=== PATIENT | female | born 1940 | race Caucasian/White ===

== ENCOUNTER 2019-01-28 14:45 | Observation (INO) ==
[2019-01-28 15:51] LABS: Basophils % 0.1 %; Hematocrit 39.6 % (35.3-44.9); Hemoglobin 12.7 g/dL (11.5-15.4); Immature Granulocytes % 0.5 % (0-4); Lymphocytes # 2.8 K/mcL (0.6-4.6); Lymphocytes % 13.8 %; Mean Corpuscular HGB Conc 32.1 g/dL (31.6-35.5); Mean Corpuscular Hemoglobin 28.8 pg (28.0-33.3); Mean Corpuscular Volume 89.8 fL (83.0-100.0); Mean Platelet Volume 9.4 fL (9.4-12.4); Monocytes # 1.6 K/mcL (0.0-1.3); Monocytes % 7.7 %; Platelet Count 223 K/mcL (140-400); Red Blood Count 4.41 M/mcL (3.82-4.97); Red Cell Distribution Width 13.8 % (11.5-14.5); Segmented Neutrophils % 77.9 %; White Blood Count 20.2 K/mcL (4.3-11.1)
--- NOTE | 2019-01-28 15:59 | Emergency Department Note ---
Disposition Clinical Impression: Colitis, UTI (urinary tract infection), Renal insufficiency, Leukocytosis Disposition: Admitted As Inpatient Condition: Fair Referrals: NONE,PCP [Non-Partnered Physician] - Time of Disposition: 16:46 Dizziness HPI - General Chief Complaint: ED Dizziness Stated Complaint: dizziness fall 2 days ago Time Seen by Provider: 01/28/19 14:50 Source: patient, family Mode of arrival: ambulatory Limitations: no limitations Nursing Notes Reviewed: Yes Vital Signs Reviewed: Yes - History of Present Illness HPI Narrative: 78-year-old female who presents to the emergency having one episodes of dizziness that started about 45 days ago she fell back and struck the back of her head patient states though that is seemed to improve but then in addition been developing abdominal pain passing blood in her stool and also having what she thinks is possibly blood in her urine. Shows fever chills lightheadedness dizziness regularly she has had some intermittent episodes of dizzy spells chills cough cold of flulike symptoms. States that she is passing blood in her stool denies any diarrhea melena hematochezia hematemesis patient has a numbness tingling weakness. Denies any calf pain swelling edema noted denies any rash or lesions. Patient has any straining she denies prior history of diverticular disease. 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 Denies: ataxia, chest pain, confusion, diaphoresis, fever, chills, malaise, rash, shortness of breath, vision changes, nausea, vomiting, palpitations - Related Data Home Medications Medication Instructions Recorded Confirmed Aspirin 81 mg PO DAILY 05/04/15 01/28/19 Atorvastatin [Lipitor] 20 mg PO HS 05/04/15 01/28/19 Folic Acid/Multivit-Min/Lutein 1 mg PO DAILY 05/04/15 01/28/19 [Centrum Silver Chewable Tablet] LORazepam [Ativan] 1 mg PO HS 05/04/15 01/28/19 Lisinopril [Zestril] 2.5 mg PO DAILY 05/04/15 01/28/19 Sertraline [Zoloft] 100 mg PO DAILY 05/04/15 01/28/19 SitaGLIPtin [Januvia] 100 mg PO DAILY 05/04/15 01/28/19 TraMADol [Ultram] 50 mg PO Q6H PRN 05/04/15 01/28/19 Denosumab [Prolia (For Outpatient 60 mg SQ [id number] 01/01/16 01/28/19 Infusion)] Vitamin E (Dl,Tocopheryl Acet) 400 unit PO DAILY 05/09/16 01/28/19 [Vitamin E] Dexlansoprazole [Dexilant] 60 mg PO DAILY 05/09/17 01/28/19 Glimepiride [Amaryl] 1 mg PO DAILY 05/09/17 01/28/19 Ergocalciferol (VITAMIN D2) 400 unit PO DAILY 08/28/17 01/28/19 [Vitamin D] Gabapentin [Neurontin] 300 mg PO TID 08/28/17 01/28/19 Levothyroxine [Synthroid] 50 mcg PO 30 08/28/17 01/28/19 Loratadine [Claritin] 10 mg PO DAILY 08/28/17 01/28/19 Triamterene/HCTZ 37.5/25mg 1 each PO DAILY 08/28/17 01/28/19 [Dyazide] Isosorbide MONOnitrate (24 HR) 30 mg PO DAILY 04/12/18 01/28/19 [Imdur] Previous Rx's Medication Instructions Recorded Metoprolol [Lopressor] 12.5 mg PO BID #60 tablet 08/30/17 Allergies Allergy/AdvReac Type Severity Reaction Status Date / Time No Known Allergies Allergy Verified 09/18/18 12:04 All systems ED: reviewed and negative except as stated. Review of Systems: As Per HPI Constitutional: Denies: fever, chills, weakness Eyes: Denies: eye pain, eye discharge ENT ED: Denies: ear pain, throat pain Cardiovascular: Denies: chest pain, palpitations, dyspnea on exertion Respiratory: Denies: cough, dyspnea, wheezes Gastrointestinal: Reports: abdominal pain, nausea, vomiting, diarrhea, hematochezia Genitourinary: Reports: frequency. Denies: urgency, dysuria Musculoskeletal: Denies: back pain, neck pain Integumentary: Denies: rash, abrasion Neurological: Denies: headache Psychiatric: Denies: anxiety, depression Endocrine: Reports: fatigue. Denies: heat or cold intolerance Hematological/Lymphatic: Denies: easy bleeding, easy bruising Allergic/Immunologic: Denies: facial swelling Past Medical History - Past Medical History Attestation: Yes The following information was validated with the patient. 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 - Social History Smoking Status: Never smoker Smokeless Tobacco Status: No Alcohol use: Reports: none Drug use: Reports: none Physical Exam - General Limitations: no limitations General appearance: alert, in no apparent distress - Head Head exam: atraumatic, normocephalic, normal inspection - Eye Eye exam: Present: normal appearance, PERRL, EOMI - ENT ENT exam: normal exam, normal oropharynx, mucous membranes moist - Neck Neck exam: Present: normal inspection, full ROM, trachea midline - Chest Chest inspection: Present: normal inspection, symmetric chest wall rise - Respiratory Respiratory exam: Present: normal lung sounds bilaterally - Cardiovascular Cardiovascular exam: Present: regular rate, normal rhythm, normal heart sounds - Abdominal Exam Abdominal exam: Present: soft, tenderness, diminished bowel sounds. Absent: mass, pulsatile mass Abdominal tenderness: Present: RLQ, LLQ, moderate - Expanded Upper Extremity Exam Shoulder exam: Present: normal inspection, full ROM Arm exam: Present: normal inspection, full ROM Elbow exam: Present: normal inspection, full ROM Forearm/Wrist exam: Present: normal inspection, full ROM Hand exam: Present: normal inspection, full ROM Vascular exam: Normal: capillary refill, radial pulse - Expanded Lower Extremity Exam Hip/Pelvis exam: Present: normal inspection, full ROM Upper leg exam: Present: normal inspection, full ROM Knee exam: Present: normal inspection, full ROM Lower leg exam: Present: normal inspection, full ROM Ankle exam: Present: normal inspection, full ROM Foot/toe exam: Present: normal inspection, full ROM Neurovascular/Tendon exam: Present: normal capillary refill, normal fine/light touch. Absent: motor deficit, sensory deficit, tendon deficit Gait: observed and normal - Back Exam Back exam: Present: normal inspection, full ROM. Absent: muscle spasm - Neurological Exam Neurological exam: Present: alert, oriented X3, CN II-XII intact, normal gait - Psychiatric Psychiatric exam: Present: normal affect, normal mood - Skin Skin exam: Present: warm, dry, intact Course Course Narrative: Patient was seen and examined and the patient's taken radiology and laboratory data is obtained upon return patient had blood cultures added after she had an elevated white count and noted to have a UTI and underlying colitis concerns are is making sure that she did not develop any type of C. difficile she did not been on any antibiotics recently as result patient was admitted transfer to [facility] stable Vital Signs Temperature 97.2 F L 01/28/19 14:46 Pulse Rate 90 01/28/19 14:46 Respiratory Rate 17 01/28/19 14:46 Blood Pressure 143/78 01/28/19 14:46 O2 Sat by Pulse Oximetry 93 01/28/19 14:46 Temperature 97.2 F L 01/28/19 14:46 Pulse Rate 90 01/28/19 14:46 Respiratory Rate 17 01/28/19 14:46 Blood Pressure 143/78 01/28/19 14:46 O2 Sat by Pulse Oximetry 93 01/28/19 14:46 Oxygen Delivery Oxygen Delivery Room Air Dizziness - MDM Narrative Medical decision making narrative: Dizziness secondary to head injury dehydration orthostatic hypotension UTI infection or bacterial abdominal pain colitis diverticulitis infectious diabetes - Medical Records Medical records reviewed: Yes I reviewed the patient's medical records. - Lab Data Lab results reviewed: Yes I reviewed the patient's lab results. - Radiology Data Radiology results reviewed: Yes I reviewed the patient's radiology results. ITS Impressions Abdomen/Pelvis CT 01/28/19 15:13 IMPRESSION: Scattered wall thickening of the distal transverse and descending colon with surrounding injection of the pericolonic fat, suggesting early colitis of indeterminate etiology. Suspected Bartholin's gland cyst previously seen on the left is no longer noted Post treatment changes right kidney. As mentioned previously there is increased soft tissue attenuation internally, new compared to 2012 Trace free fluid is seen in the pelvis, likely reactive D/ / James Jacinto MD / James Jacinto MD Interpreting Provider: James Jacinto MD Head CT 01/28/19 15:13 IMPRESSION: Stable appearance of the brain with no acute intracranial abnormality. D/ / Alvaro Campbell MD / Alvaro Campbell MD Interpreting Provider: Alvaro Campbell MD Critical Care Time Critical Care Time: No Sepsis Event Note - Evaluation Current Stage of Suspected Sepsis: sepsis Possible Source of Sepsis: GI tract/intra-abdominal - Focused Exam Date of Encounter: 01/28/19 Time of Encounter: 16:38 Vital Signs: Vital Signs Temp Pulse Resp BP Pulse Ox 01/28/19 16:31 73 20 104/58 93 01/28/19 15:58 76 17 82/65 94 01/28/19 15:34 81 16 115/74 95 01/28/19 14:46 97.2 F L 90 17 143/78 93 Respiratory Exam: Present: CTA bilaterally Cardiovascular Exam: Present: RRR Capillary Refill: < 2 seconds Peripheral Pulse Strength: 3+ normal Peripheral Pulse Location: Radial Skin Exam: normal turgor - Bedside Monitoring Bedside Ultrasound Performed: No Passive Leg raise/fluid bolus: not performed
[2019-01-28 16:05] LABS: Bilirubin,Urine Small (Negative); Blood,Urine Trace-lysed (Negative); Clarity,Urine Slightly Cloudy (Clear); Color,Urine Yellow (Yellow); Glucose,Urine (UA) Normal (Normal); Ketones,Urine Negative (Negative); Leukocyte Esterase,Urine Trace (Negative); Nitrite,Urine Negative (Negative); PH,Urine 5.5 pH Units (5.0-8.0); Protein,Urine Trace mg/dL (Neg-Trace); Specific Gravity,Urine 1.025 (1.010-1.025); Urobilinogen,Urine Normal (Normal)
[2019-01-28 16:05] LABS: Calcium 9.4 mg/dL (8.6-10.3); Potassium 4.3 mEq/L (3.5-5.1)
[2019-01-28 16:10] LABS: Neutrophils # 15.7 K/mcL (1.6-8.9)
[2019-01-28 16:13] LABS: Bacteria,Urine Many per hpf (None-Few); Hyaline Casts,Urine Few per lpf (None-Few); Mucus,Urine Few (Few); RBC,Urine 0-3 per hpf (0-3); Squamous Epithelial Cell,Urine Moderate per lpf (None-Few)
[2019-01-28 16:14] LABS: Activated Partial Thrombo Time 29.6 Seconds (26.0-36.0); INR 1.2; Prothrombin Time 13.3 Seconds (9.4-12.1)
[2019-01-28] MEDS ORDERED: MetroNIDAZOLE 500 MG/100 ML 500 MG/100 ML BAG IVPB ONE ×2 (16:37→17:45)
[2019-01-28] MEDS: 0.9 % Sodium Chloride 1,000 ML IVC SCH ×7 (17:23→20:21)
[2019-01-28] MEDS ORDERED: D5% in Water 1,000 ML IVC PRN (17:45)
[2019-01-28] MEDS ORDERED: Denosumab 60 MG/ML SYRINGE SQ SCH (17:45)
[2019-01-28] MEDS ORDERED: *HR* Dextrose 50 % in Water (Syg) 50 ML SYRINGE IVP PRN (17:45)
[2019-01-28] MEDS ORDERED: Dextrose Gel 15 GM/37.5 ML TUBE PO PRN ×2 (17:45)
[2019-01-28] MEDS ORDERED: Naloxone 0.4 MG/ML INJ IVP PRN (17:45)
[2019-01-28] MEDS ORDERED: traMADol 50 MG TABLET PO PRN (17:45)
[2019-01-28] MEDS ORDERED: Ondansetron 4 MG/2 ML VIAL IVP PRN (17:45)
[2019-01-28] MEDS: *HR* LORazepam 0.5 MG TABLET PO SCH (20:21)
[2019-01-28] MEDS: Gabapentin 300 MG CAPSULE PO SCH (20:22)
[2019-01-29] MEDS: MetroNIDAZOLE 500 MG/100 ML 500 MG/100 ML BAG IVPB SCH ×4 (02:55→23:33)
[2019-01-29] MEDS: 0.9 % Sodium Chloride 1,000 ML IVC SCH (05:10)
[2019-01-29] MEDS: Levothyroxine 25 MCG TABLET PO SCH (05:35)
[2019-01-29 06:19] LABS: Basophils % 0.1 %; Eosinophils % 0.3 %; Hematocrit 31.2 % (35.3-44.9); Hemoglobin 10.1 g/dL (11.5-15.4); Immature Granulocytes % 0.3 % (0-4); Lymphocytes # 2.8 K/mcL (0.6-4.6); Lymphocytes % 19.2 %; Mean Corpuscular HGB Conc 32.4 g/dL (31.6-35.5); Mean Corpuscular Hemoglobin 29.4 pg (28.0-33.3); Mean Platelet Volume 9.9 fL (9.4-12.4); Monocytes # 1.1 K/mcL (0.0-1.3); Monocytes % 7.1 %; Neutrophils # 10.8 K/mcL (1.6-8.9); Platelet Count 163 K/mcL (140-400); Red Blood Count 3.43 M/mcL (3.82-4.97); White Blood Count 14.8 K/mcL (4.3-11.1)
[2019-01-29 06:38] LABS: Potassium 3.4 mEq/L (3.5-5.1)
[2019-01-29 06:47] LABS: INR 1.2; Prothrombin Time 13.9 Seconds (9.4-12.1)
[2019-01-29] MEDS: Insulin LISPRO 300 UNITS/3 ML VIAL SQ SCH ×3 (07:33→16:49)
[2019-01-29] MEDS: Vitamin E 200 UNIT (90MG) CAPSULE PO SCH (08:05)
[2019-01-29] MEDS: Multivit/Ca/Min/Fe/FA 1 TAB TABLET PO SCH (08:05)
[2019-01-29] MEDS: *HR* SitaGLIPtin 25 MG TABLET PO SCH (08:05)
[2019-01-29] MEDS: Gabapentin 300 MG CAPSULE PO SCH ×3 (08:05→20:28)
[2019-01-29] MEDS: Isosorbide MONOnitrate (24 HR) 30 MG TAB.ER.24H PO SCH (08:05)
[2019-01-29] MEDS: Cholecalciferol (D-3) 1,000 UNIT (25MCG) TABLET PO SCH (08:05)
[2019-01-29] MEDS ORDERED: levoFLOXacin 750 MG/150 ML 750 MG/150 ML BAG IVPB SCH (09:00)
[2019-01-29] MEDS ORDERED: *HR* Glimepiride 2 MG TABLET PO SCH (09:00)
[2019-01-29] MEDS ORDERED: Loratadine 10 MG TABLET PO SCH (09:00)
[2019-01-29] MEDS ORDERED: Aspirin 81 MG TAB.CHEW PO SCH (09:00)
--- NOTE | 2019-01-29 09:27 | Electrocardiograph Report ---
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
[2019-01-29] MEDS ORDERED: *HR* Dextrose 50 % in Water (Vial) 50 ML VIAL IVP PRN (10:30)
--- NOTE | 2019-01-29 14:45 | Internal Med History&Physical ---
Date of Encounter: 01/29/19 Time of Encounter: 14:10 Assessment and Plan (1) Acute gastroenteritis Current visit: Yes Status: Acute Suspect viral etiology. IV fluids have been ordered. Antibiotics will be given as needed. (2) Colitis Current visit: Yes Status: Acute She has been started on IV Flagyl and Cipro in emergency room. Pro-calcitonin level will be checked. IV fluids will be given and further workup as needed. (3) Anemia Current visit: Yes Status: Acute Hemoglobin has decreased to 10.1. Anemia testing will be ordered. Qualifiers: Anemia type: unspecified type Qualified Code(s): D64.9 - Anemia, unspecified (4) Hypokalemia Current visit: Yes Status: Acute Potassium level has decreased to 3.4. Supplemental potassium will be ordered. (5) CKD (chronic kidney disease) stage 3, GFR 30-59 ml/min Current visit: No Status: Chronic Lisinopril and Dyazide will be held. IV fluids have been ordered and renal indices will be monitored. Internal Medicine - H&P: HPI Chief complaint: Lightheadedness, vomiting, bloody diarrhea Admitted From: Emergency Dept Plans for Post Hospital Care: Home History of present illness: Ms. Costa is a 78 year old female who came to emergency room stating she developed non-vertigo lightheadedness approximately January 23. On January 27 she developed vomiting and diarrhea. There was no hematemesis but she had visible bright red blood in the diarrhea on occasion. She had some nonspecific abdominal discomfort. She reports feeling chilled but denies fevers. She came to emergency room and was evaluated and was found to have changes consistent with early colitis on abdominal/pelvic CT. She was admitted to [facility] floor for ongoing care needs. She states her abdominal pain, vomiting and diarrhea have lessened since admission. She denies previous similar episodes. She reports her had diarrhea last week. She states she had an unremarkable colonoscopy over 5 years ago. She has GERD and has had cholecystectomy. She denies disorders of her liver or exocrine pancreas. Past Med Surg Social Fam HX - Past Medical History Medical history: arthritis, atrial fibrillation, cancer, diabetes, hyperlipidemia, hypertension, renal disease, other Additional medical history: breast cancer Psychiatric history: depression - Past Surgical History Surgical History: breast surgery, hysterectomy, orthopedic, other, other Additional surgical history: part of right kidney removed, x2 ribs removed right side - Social History Smoking Status: Never smoker Smokeless Tobacco Status: No Alcohol use: none Drug use: none Internal Medicine - H&P: Meds Aspirin 81 mg PO DAILY 05/04/15 [History] Atorvastatin [Lipitor] 20 mg PO HS 05/04/15 [History] Folic Acid/Multivit-Min/Lutein [Centrum Silver Chewable Tablet] 1 mg PO DAILY 05/04/15 [History] LORazepam [Ativan] 1 mg PO HS 05/04/15 [History] Lisinopril [Zestril] 2.5 mg PO DAILY 05/04/15 [History] Sertraline [Zoloft] 100 mg PO DAILY 05/04/15 [History] SitaGLIPtin [Januvia] 100 mg PO DAILY 05/04/15 [History] TraMADol [Ultram] 50 mg PO Q6H PRN 05/04/15 [History] Denosumab [Prolia (For Outpatient Infusion)] 60 mg SQ [id number] 01/01/16 [History] Vitamin E (Dl,Tocopheryl Acet) [Vitamin E] 400 unit PO DAILY 05/09/16 [History] Dexlansoprazole [Dexilant] 60 mg PO DAILY 05/09/17 [History] Glimepiride [Amaryl] 1 mg PO DAILY 05/09/17 [History] Ergocalciferol (VITAMIN D2) [Vitamin D] 400 unit PO DAILY 08/28/17 [History] Gabapentin [Neurontin] 300 mg PO TID 08/28/17 [History] Levothyroxine [Synthroid] 50 mcg PO 0630 08/28/17 [History] Loratadine [Claritin] 10 mg PO DAILY 08/28/17 [History] Triamterene/HCTZ 37.5/25mg [Dyazide] 1 each PO DAILY 08/28/17 [History] Metoprolol [Lopressor] 12.5 mg PO BID #60 tablet 08/30/17 [Rx] Isosorbide MONOnitrate (24 HR) [Imdur] 30 mg PO DAILY 04/12/18 [History] Allergy/AdvReac Type Severity Reaction Status Date / Time No Known Allergies Allergy Verified 09/18/18 12:04 All Systems PM: A 10-system review of systems was performed and is negative for pertinent findin gs except as documented above in the HPI. Review of systems: Gen.: She states her weight has been stable for several months Cardiovascular: She has history of hypertension but denies SD heart failure angina DVT or pulmonary embolus. Echocardiogram 08/28/2017 showed LVEF of 55%. Interventricular septum and posterior wall thickness measurements were 1.00 cm each. There was mild to moderate pulmonary regurgitation. E/A ratio was 1.1. [facility] 04/12/2018 showed all vessels angiographically free of disease. She denies DVT or pulmonary embolus. Respiratory: She smoked from approximately age [age] never exceeding one half pack per day. She denies chronic lung disease and does not use home oxygen GI: As per history of present illness : She has chronic kidney disease stage 3-4. She has had kidney stones in the past with hematuria. She denies other kidney or bladder disorders. Neurologic: She denies large distribution strokes or seizures. Endocrine: She was diagnosed with DM 2 approximately age 53. She has hyperlipidemia and hypothyroidism. Hematology/oncology: She reports having left breast cancer diagnosed approximately 2012 treated with lumpectomy and XRT with 5 years oral chemotherapy. She is felt to be cancer free from this. She reports right kidney cancer 2008 treated with XRT. She believes she is cancer free from this malignancy as well. She has history of anemia. She denies other blood disorders or internal malignancies Psychiatric: She has depression and anxiety but denies other mental health diagnoses. [place] skeletal: She has osteoporosis RLS and DJD. She denies known gout. - Constitutional Vitals: Temp Pulse Resp BP Pulse Ox 98.6 F 74 18 100/60 96 01/29/19 10:27 01/29/19 10:27 01/29/19 10:27 01/29/19 10:27 01/29/19 10:27 Exam: Gen.: She is a well-developed well-nourished female resting comfortably in bed who appears in no acute distress HEENT: Head is atraumatic and normocephalic. Eyes: EOMI. There is no scleral icterus. Mouth: Mucosa is moist. Neck: Supple and nontender. There is no thyromegaly or adenopathy noted. Heart: Regular without murmurs gallops or ectopics Lungs: No wheezes or crackles are heard. Abdomen: Bowel sounds are present but diminished. There is mild tenderness to palpation. No masses or guarding are noted. Extremities: There is no cyanosis edema or clubbing noted. Dorsalis pedis and posterior tibial pulses are trace to 1+ palpable bilaterally. Neurologic: Mental status: She is talkative and a good historian. Cranial nerves: Smile is symmetric. Forehead wrinkles bilaterally. Tongue protrudes midline. EOMI. Motor: There is no pronator drift. Cerebellar: Finger to nose is intact bilaterally. Skin: Warm and dry Internal Med - H&P Results - Labs CBC & Chem 7: 01/29/19 05:27 01/29/19 05:27 Labs: Short CBC 01/28/19 01/29/19 Range/Units 15:39 05:27 WBC 20.2 H 14.8 H (4.3-11.1) K/mcL Hgb 12.7 10.1 L D (11.5-15.4) g/dL Hct 39.6 31.2 L (35.3-44.9) % Plt Count 223 163 (140-400) K/mcL Neutrophils # 15.7 H 10.8 H (1.6-8.9) K/mcL BMP 01/28/19 01/29/19 15:39 05:27 Sodium 135 L 141 Potassium 4.3 3.4 L Chloride 99 108 H Carbon Dioxide 27 26 BUN 38 H 29 H Creatinine 2.02 H 1.45 H Glucose 126 H 130 H Calcium 9.4 8.0 L Urine 01/28/19 Range/Units 15:57 Urine Color Yellow (Yellow) Urine Clarity Slightly Cloudy A (Clear) Urine pH 5.5 (5.0-8.0) pH Units Ur Specific [place] 1.025 (1.010-1.025) Urine Protein Trace (Neg-Trace) mg/dL Urine Glucose (UA) Normal (Normal) mg/dL - Impressions ITS Impressions Abdomen/Pelvis CT 01/28/19 15:13 IMPRESSION: Scattered wall thickening of the distal transverse and descending colon with surrounding injection of the pericolonic fat, suggesting early colitis of indeterminate etiology. Suspected Bartholin's gland cyst previously seen on the left is no longer noted Post treatment changes right kidney. As mentioned previously there is increased soft tissue attenuation internally, new compared to 2012 Trace free fluid is seen in the pelvis, likely reactive D/ / James Jacinto MD / James Jacinto MD Interpreting Provider: James Jacinto MD Head CT 01/28/19 15:13 IMPRESSION: Stable appearance of the brain with no acute intracranial abnormality. D/ / Alvaro Campbell MD / Alvaro Campbell MD Interpreting Provider: Alvaro Campbell MD
[2019-01-29] MEDS: 0.45 % Sodium Chloride w/KCl 20 MEQ/1,000 ML MLS IVC SCH (16:48)
[2019-01-29] MEDS: *HR* LORazepam 0.5 MG TABLET PO SCH (20:27)
[2019-01-30] MEDS: 0.45 % Sodium Chloride w/KCl 20 MEQ/1,000 ML MLS IVC SCH (04:20)
[2019-01-30 05:15] LABS: Basophils % 0.3 %; Eosinophils # 0.2 K/mcL (0.0-0.6); Eosinophils % 1.7 %; Hematocrit 29.9 % (35.3-44.9); Hemoglobin 9.6 g/dL (11.5-15.4); Immature Granulocytes % 0.2 % (0-4); Lymphocytes # 2.9 K/mcL (0.6-4.6); Lymphocytes % 25.8 %; Mean Corpuscular HGB Conc 32.1 g/dL (31.6-35.5); Mean Corpuscular Hemoglobin 29.3 pg (28.0-33.3); Mean Corpuscular Volume 91.2 fL (83.0-100.0); Mean Platelet Volume 9.7 fL (9.4-12.4); Monocytes # 0.8 K/mcL (0.0-1.3); Neutrophils # 7.3 K/mcL (1.6-8.9); Platelet Count 160 K/mcL (140-400); Red Blood Count 3.28 M/mcL (3.82-4.97); Red Cell Distribution Width 14.3 % (11.5-14.5); White Blood Count 11.2 K/mcL (4.3-11.1)
[2019-01-30 05:35] LABS: Albumin 3.2 g/dL (3.5-5.7); Albumin/Globulin Ratio 1.2 (1.1-2.2); Bilirubin,Total 0.2 mg/dL (0.3-1.0); Calcium 7.8 mg/dL (8.6-10.3); Globulin 2.7 g/dL (2.4-3.5); Magnesium 1.7 mg/dL (1.6-2.6); Potassium 3.9 mEq/L (3.5-5.1); Total Protein 5.9 g/dL (6.4-8.9)
[2019-01-30] MEDS: Levothyroxine 25 MCG TABLET PO SCH (06:01)
[2019-01-30 06:23] VITALS: BP 111/61
[2019-01-30 07:26] LABS: Thyroid Stimulating Hormone 3.377 mcIU/mL (0.340-5.600)
[2019-01-30] MEDS: Insulin LISPRO 300 UNITS/3 ML VIAL SQ SCH (07:44)
[2019-01-30] MEDS: Multivit/Ca/Min/Fe/FA 1 TAB TABLET PO SCH (08:28)
[2019-01-30] MEDS: Vitamin E 200 UNIT (90MG) CAPSULE PO SCH (08:30)
[2019-01-30] MEDS: Gabapentin 300 MG CAPSULE PO SCH (08:30)
[2019-01-30] MEDS: Isosorbide MONOnitrate (24 HR) 30 MG TAB.ER.24H PO SCH (08:30)
[2019-01-30] MEDS: *HR* SitaGLIPtin 25 MG TABLET PO SCH (08:30)
[2019-01-30] MEDS: Cholecalciferol (D-3) 1,000 UNIT (25MCG) TABLET PO SCH (08:30)
[2019-01-30 09:44] LABS: Folate > 22.3 ng/mL (3.0-16.0); Vitamin B12 515 pg/mL (250-1100)
--- NOTE | 2019-01-30 10:00 | Discharge Summary ---
Orders not resulted at time of discharge: Pending orders 01/28/19 16:50 Culture,Blood [] Stat Date of Encounter: 01/30/19 Time of Encounter: 09:50 - Discharge Diagnosis (1) Acute gastroenteritis Priority: Primary Status: Acute (2) Colitis Priority: Secondary Status: Acute (3) Anemia Priority: Secondary Status: Acute Qualifiers: Anemia type: unspecified type Qualified Code(s): D64.9 - Anemia, unspecified (4) Hypokalemia Priority: Secondary Status: Resolved (5) CKD (chronic kidney disease) stage 3, GFR 30-59 ml/min Priority: Secondary Status: Chronic Hospital course: Ms. Costa is a 78 year old female who came to emergency room stating she developed non-vertigo lightheadedness approximately January 23. On January 27 she developed vomiting and diarrhea. There was no hematemesis but she had visible bright red blood in the diarrhea on occasion. She had some nonspecific abdominal discomfort. She reports feeling chilled but denies fevers. She came to emergency room and was evaluated and was found to have changes consistent with early colitis on abdominal/pelvic CT. She was admitted to [facility] for ongoing care needs. Initial orders were written by the emergency room physician. I saw her on January 29 and performed the history and physical. She was given IV fluids. Antiemetics were given as needed. She was started on IV Flagyl and Cipro. She had good clinical response with WBC decreasing to 11.2 by day of discharge with resolution of left shift on differential. She had resolution of vomiting and diarrhea prior to discharge. Hemoglobin decreased to 9.6 with administration of IV fluids. Anemia testing showed iron 41, transferrin saturation 19%, transferrin 156, ferritin 255, B12 515, and folate> 22.3. Aspirin dose will be reduced to 81 mg every other day. Her PCP can monitor labs. Lisinopril and Dyazide were discontinued because of borderline hypotension and azotemia. BUN and creatinine improved to 22 and 1.30 with estimated GFR 40 by day of discharge. On January 30 she felt significantly improved and wished to be discharged home which I felt was reasonable. She will follow with her PCP Dr. Tavo Zambrano within 1 week. She will continue with antibiotic and probiotic for 3 additional days at discharge. - Time Spent with Patient Total time spent providing and/or coordinating discharge services: - Discharge Medications Prescriptions: New Aspirin 81 mg PO Q48H tab.chew Ciprofloxacin [Cipro] 500 mg PO BID #6 tablet Lactobacillus [Culturelle] 1 each PO BID #6 cap.sprink metroNIDAZOLE [Flagyl] 500 mg PO Q8H #9 tablet Continued SitaGLIPtin [Januvia] 100 mg PO DAILY Sertraline [Zoloft] 100 mg PO DAILY TraMADol [Ultram] 50 mg PO Q6H PRN PRN Reason: Pain LORazepam [Ativan] 1 mg PO HS Atorvastatin [Lipitor] 20 mg PO HS Folic Acid/Multivit-Min/Lutein [Centrum Silver Chewable Tablet] 1 mg PO DAILY Vitamin E (Dl,Tocopheryl Acet) [Vitamin E] 400 unit PO DAILY Dexlansoprazole [Dexilant] 60 mg PO DAILY Glimepiride [Amaryl] 1 mg PO DAILY Loratadine [Claritin] 10 mg PO DAILY Levothyroxine [Synthroid] 50 mcg PO 0630 Gabapentin [Neurontin] 300 mg PO TID Ergocalciferol (VITAMIN D2) [Vitamin D] 400 unit PO DAILY Metoprolol [Lopressor] 12.5 mg PO BID #60 tablet Isosorbide MONOnitrate (24 HR) [Imdur] 30 mg PO DAILY Denosumab [Prolia (For Outpatient Infusion)] 60 mg SQ [id number] Discontinued Lisinopril [Zestril] 2.5 mg PO DAILY Aspirin 81 mg PO DAILY Triamterene/HCTZ 37.5/25mg [Dyazide] 1 each PO DAILY Home Medications: Atorvastatin [Lipitor] 20 mg PO HS 05/04/15 [History] Folic Acid/Multivit-Min/Lutein [Centrum Silver Chewable Tablet] 1 mg PO DAILY 05/04/15 [History] LORazepam [Ativan] 1 mg PO HS 05/04/15 [History] Sertraline [Zoloft] 100 mg PO DAILY 05/04/15 [History] SitaGLIPtin [Januvia] 100 mg PO DAILY 05/04/15 [History] TraMADol [Ultram] 50 mg PO Q6H PRN 05/04/15 [History] Denosumab [Prolia (For Outpatient Infusion)] 60 mg SQ [id number] 01/01/16 [History] Vitamin E (Dl,Tocopheryl Acet) [Vitamin E] 400 unit PO DAILY 05/09/16 [History] Dexlansoprazole [Dexilant] 60 mg PO DAILY 05/09/17 [History] Glimepiride [Amaryl] 1 mg PO DAILY 05/09/17 [History] Ergocalciferol (VITAMIN D2) [Vitamin D] 400 unit PO DAILY 08/28/17 [History] Gabapentin [Neurontin] 300 mg PO TID 08/28/17 [History] Levothyroxine [Synthroid] 50 mcg PO 30 08/28/17 [History] Loratadine [Claritin] 10 mg PO DAILY 08/28/17 [History] Metoprolol [Lopressor] 12.5 mg PO BID #60 tablet 08/30/17 [Rx] Isosorbide MONOnitrate (24 HR) [Imdur] 30 mg PO DAILY 04/12/18 [History] Aspirin 81 mg PO Q48H tab.chew 01/30/19 [Rx] Ciprofloxacin [Cipro] 500 mg PO BID #6 tablet 01/30/19 [Rx] Lactobacillus [Culturelle] 1 each PO BID #6 cap.sprink 01/30/19 [Rx] metroNIDAZOLE [Flagyl] 500 mg PO Q8H #9 tablet 01/30/19 [Rx] Allergies/Adverse Reactions: Allergy/AdvReac Type Severity Reaction Status Date / Time No Known Allergies Allergy Verified 09/18/18 12:04 Date of admission: 01/28/19 16:45 Primary care physician: Tavo Zambrano MD - Constitutional Vitals: Temp Pulse Resp BP Pulse Ox 98.3 F 67 18 111/61 97 01/30/19 06:20 01/30/19 06:20 01/30/19 06:20 01/30/19 06:20 01/30/19 06:20 - Patient Status Disposition: Home, Self-Care Condition: Fair - Discharge Instructions Follow Up With: Tavo Zambrano MD [Primary Care Provider] - 1 week - Diet and Activity Activity: resume usual activities as tolerated Diet: advance to your usual diet
== END 2019-01-30 11:19 | disposition home or self-care (01) ==
LOC: EMEROOPIK 14:45 → INPPIK 14:45
PROVIDERS: ADMIT Internal Medicine; ATTEND Internal Medicine

== ENCOUNTER 2022-03-24 09:22 | Inpatient (IN) ==
[2022-03-24] MEDS ORDERED: *HR* Dextrose 50 % in Water (Syg) 50 ML SYRINGE IVP PRN (14:10)
[2022-03-24] MEDS ORDERED: Dextrose Gel 15 GM/37.5 ML TUBE PO PRN ×2 (14:10)
[2022-03-24] MEDS ORDERED: D5% in Water 1,000 ML IVC PRN (14:10)
[2022-03-24] MEDS: Insulin LISPRO 300 UNITS/3 ML VIAL SUBQ SCH ×2 (16:43→20:40)
[2022-03-24] MEDS ORDERED: DICLOFENAC TP PRN (16:59)
[2022-03-24] MEDS ORDERED: GABAPENTIN TP PRN (16:59)
[2022-03-24] MEDS ORDERED: LIDOCAINE TP PRN (16:59)
[2022-03-24] MEDS ORDERED: BACLOFEN TP PRN (16:59)
[2022-03-24] MEDS: Fidaxomicin 200 MG TABLET PO SCH (20:40)
[2022-03-24] MEDS: *HR* LORazepam 0.5 MG TABLET PO SCH (20:40)
[2022-03-24] MEDS: Gabapentin 300 MG CAPSULE PO SCH (20:41)
[2022-03-25] MEDS: *HR* Enoxaparin 40 MG/0.4 ML SYRINGE SQ SCH (06:02)
[2022-03-25] MEDS: Aspirin 81 MG TAB.CHEW PO SCH (08:43)
[2022-03-25] MEDS: Multivit/Ca/Min/Fe/FA 1 TAB TABLET PO SCH (08:43)
[2022-03-25] MEDS: Isosorbide MONOnitrate (24 HR) 30 MG TAB.ER.24H PO SCH (08:43)
[2022-03-25] MEDS: Insulin LISPRO 300 UNITS/3 ML VIAL SUBQ SCH ×4 (08:43→21:16)
[2022-03-25] MEDS: Gabapentin 300 MG CAPSULE PO SCH ×3 (08:43→20:54)
[2022-03-25] MEDS: Torsemide 20 MG TABLET PO SCH (08:44)
[2022-03-25] MEDS: *HR* Glimepiride 2 MG TABLET PO SCH (08:45)
[2022-03-25] MEDS: Lactobacillus 1 EACH CAP.SPRINK PO SCH (08:46)
[2022-03-25] MEDS: TRADJENTA 5 MG PO SCH (08:54)
[2022-03-25] MEDS: Fidaxomicin 200 MG TABLET PO SCH ×2 (08:54→20:54)
[2022-03-25 09:26] LABS: Basophils # 0.1 K/mcL (0.0-0.2); Basophils % 0.6 %; Eosinophils # 0.7 K/mcL (0.0-0.6); Eosinophils % 6.7 %; Hematocrit 35.1 % (35.3-44.9); Hemoglobin 10.9 g/dL (11.5-15.4); Immature Granulocytes % 1.5 % (0-4); Lymphocytes # 1.6 K/mcL (0.6-4.6); Lymphocytes % 15.5 %; Mean Corpuscular HGB Conc 31.1 g/dL (31.6-35.5); Mean Corpuscular Hemoglobin 27.1 pg (28.0-33.3); Mean Corpuscular Volume 87.3 fL (83.0-100.0); Mean Platelet Volume 10.2 fL (9.4-12.4); Monocytes # 0.5 K/mcL (0.0-1.3); Monocytes % 5.3 %; Neutrophils # 7.2 K/mcL (1.6-8.9); Platelet Count 326 K/mcL (140-400); Red Blood Count 4.02 M/mcL (3.82-4.97); Red Cell Distribution Width 16.3 % (11.5-14.5); Segmented Neutrophils % 70.4 %; White Blood Count 10.3 K/mcL (4.3-11.1)
[2022-03-25 09:38] LABS: BUN/Creatinine Ratio 12 (6-26); Blood Urea Nitrogen 11 mg/dL (8-23); Calcium 7.9 mg/dL (8.6-10.3); Carbon Dioxide 25 mEq/L (23-29); Chloride 110 mEq/L (98-107); Glucose 171 mg/dL (70-105); Osmolality,Calculated 299 (280-300); Potassium 3.9 mEq/L (3.5-5.1); Sodium 143 mEq/L (136-145); eGFR For African Americans > 60 (> 60); eGFR For Non-African Americans > 60 (> 60)
[2022-03-25] MEDS: *HR* LORazepam 0.5 MG TABLET PO SCH (20:54)
[2022-03-26] MEDS: *HR* Enoxaparin 40 MG/0.4 ML SYRINGE SQ SCH (05:36)
[2022-03-26] MEDS: Insulin LISPRO 300 UNITS/3 ML VIAL SUBQ SCH ×2 (07:54→12:47)
[2022-03-26] MEDS: *HR* Glimepiride 2 MG TABLET PO SCH (07:55)
[2022-03-26] MEDS: Fidaxomicin 200 MG TABLET PO SCH ×2 (07:55→21:45)
[2022-03-26] MEDS: Gabapentin 300 MG CAPSULE PO SCH ×3 (07:55→21:45)
[2022-03-26] MEDS: Isosorbide MONOnitrate (24 HR) 30 MG TAB.ER.24H PO SCH (07:55)
[2022-03-26] MEDS: Multivit/Ca/Min/Fe/FA 1 TAB TABLET PO SCH (07:55)
[2022-03-26] MEDS: Torsemide 20 MG TABLET PO SCH (07:57)
[2022-03-26] MEDS: TRADJENTA 5 MG PO SCH (07:58)
[2022-03-26] MEDS: Lactobacillus 1 EACH CAP.SPRINK PO SCH (07:58)
[2022-03-26] MEDS: *HR* LORazepam 0.5 MG TABLET PO SCH (21:45)
[2022-03-27] MEDS: *HR* Enoxaparin 40 MG/0.4 ML SYRINGE SQ SCH (06:13)
[2022-03-27] MEDS: Fidaxomicin 200 MG TABLET PO SCH ×2 (10:07→21:12)
[2022-03-27] MEDS: Torsemide 20 MG TABLET PO SCH (10:07)
[2022-03-27] MEDS: Multivit/Ca/Min/Fe/FA 1 TAB TABLET PO SCH (10:07)
[2022-03-27] MEDS: Gabapentin 300 MG CAPSULE PO SCH ×3 (10:07→21:13)
[2022-03-27] MEDS: Lactobacillus 1 EACH CAP.SPRINK PO SCH (10:07)
[2022-03-27] MEDS: Aspirin 81 MG TAB.CHEW PO SCH (10:08)
[2022-03-27] MEDS: Isosorbide MONOnitrate (24 HR) 30 MG TAB.ER.24H PO SCH (10:08)
[2022-03-27] MEDS: *HR* Glimepiride 2 MG TABLET PO SCH (10:08)
[2022-03-27] MEDS: TRADJENTA 5 MG PO SCH (10:08)
[2022-03-27] MEDS: *HR* LORazepam 0.5 MG TABLET PO SCH (21:13)
[2022-03-28] MEDS: *HR* Enoxaparin 40 MG/0.4 ML SYRINGE SQ SCH (06:05)
[2022-03-28] MEDS: *HR* Glimepiride 2 MG TABLET PO SCH (08:28)
[2022-03-28] MEDS: Fidaxomicin 200 MG TABLET PO SCH ×2 (08:29→20:58)
[2022-03-28] MEDS: Multivit/Ca/Min/Fe/FA 1 TAB TABLET PO SCH (08:29)
[2022-03-28] MEDS: Torsemide 20 MG TABLET PO SCH (08:29)
[2022-03-28] MEDS: Isosorbide MONOnitrate (24 HR) 30 MG TAB.ER.24H PO SCH (08:29)
[2022-03-28] MEDS: Lactobacillus 1 EACH CAP.SPRINK PO SCH (08:29)
[2022-03-28] MEDS: Gabapentin 300 MG CAPSULE PO SCH ×3 (08:29→20:57)
[2022-03-28] MEDS: TRADJENTA 5 MG PO SCH (08:33)
[2022-03-28] MEDS: *HR* LORazepam 0.5 MG TABLET PO SCH (20:57)
[2022-03-29] MEDS: *HR* Enoxaparin 40 MG/0.4 ML SYRINGE SQ SCH (05:38)
[2022-03-29] MEDS: Torsemide 20 MG TABLET PO SCH (08:00)
[2022-03-29] MEDS: Isosorbide MONOnitrate (24 HR) 30 MG TAB.ER.24H PO SCH (08:00)
[2022-03-29] MEDS: Multivit/Ca/Min/Fe/FA 1 TAB TABLET PO SCH (08:00)
[2022-03-29] MEDS: Aspirin 81 MG TAB.CHEW PO SCH (08:00)
[2022-03-29] MEDS: TRADJENTA 5 MG PO SCH (08:01)
[2022-03-29] MEDS: Fidaxomicin 200 MG TABLET PO SCH ×2 (08:01→21:42)
[2022-03-29] MEDS: Gabapentin 300 MG CAPSULE PO SCH ×3 (08:01→21:43)
[2022-03-29] MEDS: *HR* Glimepiride 2 MG TABLET PO SCH (08:01)
[2022-03-29] MEDS: Lactobacillus 1 EACH CAP.SPRINK PO SCH (08:01)
[2022-03-29 08:25] LABS: Hematocrit 31.9 % (35.3-44.9); Hemoglobin 10.2 g/dL (11.5-15.4); Mean Corpuscular Hemoglobin 27.8 pg (28.0-33.3); Mean Corpuscular Volume 86.9 fL (83.0-100.0); Mean Platelet Volume 9.8 fL (9.4-12.4); Platelet Count 313 K/mcL (140-400); Red Blood Count 3.67 M/mcL (3.82-4.97); Red Cell Distribution Width 15.6 % (11.5-14.5); White Blood Count 9.4 K/mcL (4.3-11.1)
[2022-03-29 08:40] LABS: Calcium 8.6 mg/dL (8.6-10.3)
[2022-03-29] MEDS: *HR* LORazepam 0.5 MG TABLET PO SCH (21:43)
[2022-03-30] MEDS: *HR* Enoxaparin 40 MG/0.4 ML SYRINGE SQ SCH (06:00)
[2022-03-30 07:19] VITALS: BP 113/65; PULSE 81; RESP 17; TEMP 98.6; O2SAT 90
[2022-03-30] MEDS: Fidaxomicin 200 MG TABLET PO SCH (11:32)
[2022-03-30] MEDS: *HR* Glimepiride 2 MG TABLET PO SCH (11:32)
[2022-03-30] MEDS: Multivit/Ca/Min/Fe/FA 1 TAB TABLET PO SCH (11:33)
[2022-03-30] MEDS: Torsemide 20 MG TABLET PO SCH (11:33)
[2022-03-30] MEDS: Isosorbide MONOnitrate (24 HR) 30 MG TAB.ER.24H PO SCH (11:33)
[2022-03-30] MEDS: Gabapentin 300 MG CAPSULE PO SCH (11:33)
[2022-03-30] MEDS: Lactobacillus 1 EACH CAP.SPRINK PO SCH (11:34)
[2022-03-30] MEDS: TRADJENTA 5 MG PO SCH (11:35)
== END 2022-03-30 13:10 | disposition home health service (06) | DRG 373 ==
LOC: INPPIK 14:45
PROVIDERS: ADMIT Family Medicine; ATTEND Family Medicine